=== PATIENT | male | born 1975 | race Asian ===

== ENCOUNTER 2016-11-15 06:49 | Emergency (ER) | payer OTHER ==
[~2016-11-15] VITALS: Ht 170.2 cm; Wt 83.0 kg
[2016-11-15] MEDS ORDERED: ONDANSETRON 2MG/ML, 2ML IVPush ONE (07:00)
[2016-11-15] MEDS ORDERED: SODIUM CHLORIDE 0.9% 1,000ML IVBOLUS ONE (07:00)
[2016-11-15] MEDS ORDERED: FAMOTIDINE 20 MG/2 ML IVP ONE (07:00)
[2016-11-15] MEDS ORDERED: ONDANSETRON 2MG/ML, 2ML ONE (07:16)
[2016-11-15] MEDS ORDERED: FAMOTIDINE 20 MG/2 ML ONE (07:16)
[2016-11-15 07:26] LABS: HEMOGLOBIN 16.1 g/dL (13.7-18.0); WHITE BLOOD COUNT 10.7 x10^3/uL (3.4-10)
[2016-11-15 07:34] LABS: ASPARTATE AMINO TRANSFERASE 16 U/L (15-37); BLOOD UREA NITROGEN 13 mg/dL (7-18)
[2016-11-15 07:40] LABS: PATH.CAST-FLAG NOT PRESENT; SPERM-FLAG NOT PRESENT; SRC-FLAG NOT PRESENT; XTAL-FLAG NOT PRESENT; YLC-FLAG NOT PRESENT
[2016-11-15 10:57] VITALS: BP 113/70
== END 2016-11-15 11:00 | disposition home or self-care (01) ==
LOC: ED 07:21
DX: N20.0 Calculus of kidney (principal); R31.9 Hematuria, unspecified
CPT/HCPCS: 36415; 74022; 74176; 80053; 81001; 83690; 85025; 96361; 96374; 96375; 99285; J2405; J7030; S0028